=== PATIENT | female | born 1950 | race Caucasian/White ===

== ENCOUNTER 2018-06-01 05:34 | Inpatient (IN) ==
[2018-06-01] MEDS ORDERED: NS 1,000 ML IV ONE ×2 (05:42→08:00)
--- NOTE | 2018-06-01 05:46 | PROVIDER DOCUMENTATION ---
HPI-General Adult - General Chief Complaint: N/V/D Stated Complaint: vomiting/diarrhea Time Seen by Provider: 06/01/18 05:42 Source: patient (Patient is a 67 year old white female with COPD and throat cancer who presents by EMS complaining of nausea,vomiting,diarrhea, and dizziness since this morning. EMS report low blood pressure of 80 systolic. Denies chest pain, fever, or productive cough.) Allergies/Adverse Reactions: Patient Allergies Allergy/AdvReac Type Severity Reaction Status Date / Time metoprolol Allergy Unknown Verified 06/01/18 05:46 Sulfa (Sulfonamide Allergy SHORTNESS Verified 06/01/18 05:46 Antibiotics) OF BREATH morphine AdvReac Unknown Verified 06/01/18 05:46 Home Medications: Home Medication List Medication Instructions Recorded Confirmed Last Taken Type ATORVAstatin [Lipitor] 20 mg PO DAILY 05/13/16 06/01/18 Unknown History Cyproheptadine [Periactin] 4 mg PO HS 05/13/16 06/01/18 Unknown History Duloxetine HCl 90 mg PO DAILY 05/13/16 06/01/18 Unknown History Gabapentin 300 mg PO BID 05/13/16 06/01/18 Unknown History Omeprazole 40 mg PO DAILY 05/13/16 06/01/18 Unknown History Pramipexole [Mirapex] 0.5 mg PO QHS 05/13/16 06/01/18 Unknown History Prazosin [Minipress] 1 mg PO QHS 05/13/16 06/01/18 Unknown History Spironolactone 25 mg PO DAILY 05/13/16 06/01/18 Unknown History Trazodone [Desyrel] 100 mg PO QHS 05/13/16 06/01/18 Unknown History LISINOpril [Prinivil] 10 mg PO DAILY #30 tablet 05/15/16 06/01/18 Unknown Rx Alprazolam 1 tab PO Q8H PRN PRN 06/01/18 06/01/18 Unknown History Carvedilol [Coreg] 1 tab PO BID 06/01/18 06/01/18 Unknown History Montelukast Sodium 1 tab PO DAILY 06/01/18 06/01/18 Unknown History Ondansetron HCl 1 tab PO Q8H PRN PRN 06/01/18 06/01/18 Unknown History Prochlorperazine Maleate 1 tab PO Q6H PRN PRN 06/01/18 06/01/18 Unknown History - History of Present Illness -Gen Adult Nature of Presenting Problems: Patient is a 67 year old white female with COPD ,GERD, HTN,dementia, apnea, recent throat infection(currently taking antibiotic), and squamous cell carcinoma of nasopharynx who presents by EMS complaining of nausea,vomiting, diarrhea, and dizziness since this morning. EMS report low blood pressure of 80 systolic. Denies chest pain, fever, or productive cough. Review of Systems - Adult - REVIEW OF SYSTEMS - ADULT Constitutional: reports: fatique, weight loss Eyes: reports: no symptoms reported Ears, Nose, Mouth & Throat: reports: throat pain (recent throat infection, currently taking antibiotic) Cardiovascular: denies: chest pain Respiratory: reports: see HPI, cough, shortness of breath Gastrointestinal: reports: diarrhea, nausea, vomiting. denies: abdominal pain Genitourinary: denies: dysuria Musculoskeletal: reports: no symptoms reported Integumentary: denies: rash Neurological: reports: dizziness/vertigo Psychiatric: reports: anxiety Endocrine: reports: no symptoms reported Hematologic/Lymphatic: reports: no symptoms reported Allergic/Immunologic: reports: no symptoms reported All Other Systems: Reviewed and Negative Past History - Adult - PAST MEDICAL HISTORY-ADULT Review of Records: reports: Old Records Reviewed, Nursing Assessment Review, Medications Reviewed, Social history reviewed & non-contributory. Cardiovascular: reports: HTN Respiratory: reports: bronchitis, COPD, sleep apnea Gastrointestinal: reports: GERD Musculoskeletal: reports: denies history Neurological: reports: dementia Psychiatric: reports: anxiety Endocrine/Immune: reports: denies history - FAMILY HISTORY Family History: reviewed, not pertinent - SOCIAL HISTORY Smoking: quit greater than 1 year, other (prior heavy smoker, now smokes E- cigarettes) Substance Use: denies Alcohol Use Frequency: occasionally Physical Exam-General - CONSTITUTIONAL General Appearance: alert, other (generalized weakness, alert and responsive, appears pale,dry oral mucosa with dried blood over posterior pharynx) - EYES Eyes: other (clear, nonicteric) - HEAD, EARS, NOSE, MOUTH & THROAT HENMT: other (dry oral mucosa) - NECK Neck: supple - RESPIRATORY Respiratory: decreased breath sounds, other (nonlabored) - CARDIOVASCULAR Cardiovascular: regular rate, rhythm - GASTROINTESTINAL (ABDOMEN) Abdominal Exam: non tender, soft - MUSCULOSKELETAL Back Exam: no CVA tenderness Extremity: non-tender Peripheral Pulses: radial (R): 1+, radial (L): 1+ - SKIN Integumentary: other (decreased turgor) - NEUROLOGIC Neurologic: other (nonfocal) - PSYCHIATRIC Psych/Mental Status: anxious Progress - PLAN OF CARE/RESULTS Progress/Plan/Lab Results: Orders Category Date Time Status Cardiac Monitoring DIRECTED Care 06/01/18 05:42 Ordered Core Temperature ORDERED Care 06/01/18 05:42 Ordered CHEST-PORTABLE [RAD] Stat Exams 06/01/18 05:43 Ordered ABG [RESP] Stat Lab 06/01/18 05:43 Ordered CBC WITH ELECTRONIC DIFF [HEME] Stat Lab 06/01/18 05:44 Uncollected CMP [COMPREHENSIVE METABOLIC PANEL] [CHEM] Stat Lab 06/01/18 05:44 Uncollected LACTATE, PLASMA [CHEM] Stat Lab 06/01/18 05:43 Uncollected Ns 1000 ml IV Bolus X1 Med 06/01/18 05:42 Ordered 0.9% Sodium Chloride Inj [Ns] 1,000 ml IV 999 mls/hr Result Diagrams: 06/01/18 07:00 06/01/18 07:00 - REASSESSMENT Reassessment #1 Time Reassessed: 08:01 Status: unchanged (vomiting stopped , still diarrhea. ist liter ns given, not leukocytosis, chemo help past 2 week(dr Felipe) for renal injury, now with dehydration. Exam: throat davion raw /inflammed. abd tender lower quadrants. will CT to check for colitis.) Reassessment #2 Time Reassessed: 09:49 Status: improving (NOT ct W/ DESCENDING COLITIS, DISCUSSED ANTIBIOTICS AND ADMISSIO WITH DR THAKUR) - XRAY 1 XRAY Study: Chest XRAY Interpretation: NAD - CONSULTS/PCP/HOSPITALIST Notification #1 *Consult/PCP/Hospitalist*: DR OFE JAIME Time Discussed: 09:53 Consult Disposition: Admit - CHANGE OF SHIFT REPORT (ED Provider) Report Given and Care Transferred to:: Dr. Colt Gary Time of Transfer: 07:00 Items Pending: Labs Departure - Departure Date of Disposition Decision: 06/01/18 Time of Disposition Decision: 09:50 DIAGNOSIS: Colitis, Renal insufficiency, Dehydration Hypotension Qualifiers: Hypotension type: orthostatic hypotension Qualified Code(s): I95.1 - Orthostatic hypotension COPD (chronic obstructive pulmonary disease) Qualifiers: COPD type: unspecified COPD Qualified Code(s): J44.9 - Chronic obstructive pulmonary disease, unspecified Pharyngitis Qualifiers: Pharyngitis/tonsillitis etiology: unspecified etiology Qualified Code(s): J02.9 - Acute pharyngitis, unspecified Disposition: ADMITTED INPATIENT 09 Certified Medical Emergency: Emergent Condition: Stable Referrals and Follow-Ups: None,PCP [Primary Care Provider] - - Critical Care Note This patient required my direct & personal management of CC.: Yes Total Time (mins): 30 Critical Care Statement: This patient required my direct personal management to treat or rule out processes, the absence of which, could potentiallly result in sudden, clinically significant life or limb threatening deterioration. Attestation - Physician/ NAFISA Attestation Patient care was provided by Advanced Practice Provider:: No The physician spent face to face time with patient:: Yes Advanced Practice Provider documentation review:: Supervising physician onsite and consulted in the evaluation and care of this patient. The physician did have a face to face encounter with the patient.
[2018-06-01] MEDS ORDERED: ZOFRAN IV ONE (06:01)
[2018-06-01 06:06] LABS: BE -3.8 mmoll (-3.0-3.0); BLOOD TYPE ARTERIAL; HCO3-(ACT) 21.9 mmoll (20.0-26.0); METHB 1.3 % (0.0-1.5); O2(CT) 14.5 mL/dL (15.0-23.0); O2HB 91.9 % (95.0-99.0); PCO2(98.6) 43 mmHg (35-45); PO2(98.6) 69 mmHg (60-100); SAMPLE BLOOD; SAO2 95.3 % (95.0-100.0); THB 11.2 g/dL (11.5-17.4); pH(98.6) 7.32 (7.35-7.45)
[2018-06-01 06:09] LABS: MODALITY CANNULA
[2018-06-01 06:58] LABS: BILIRUBIN URINE NEGATIVE (NEGATIVE); BLOOD URINE NEGATIVE (NEGATIVE); CLARITY CLEAR (CLEAR); COLOR YELLOW; GLUCOSE URINE NEGATIVE (NEGATIVE); KETONE URINE NEGATIVE (NEGATIVE); LEUKOCYTES URINE NEGATIVE (NEGATIVE); NITRITE URINE NEGATIVE (NEGATIVE); PH URINE 6.5; PROTEIN URINE NEGATIVE (NEGATIVE); SP GRAVITY URINE 1.005; UROBILINOGEN URINE NORMAL
--- NOTE | 2018-06-01 07:04 | Diag Imaging Result Doc PS360 ---
EXAM: CHEST-PORTABLE - 06/01/2018 HISTORY: shortness of breath TECHNIQUE: Portable chest COMPARISON: 05/13/2016 FINDINGS: Inspiration is shallow. There are scarring and subsegmental atelectasis at the bilateral lung bases. The remainder of the lungs appear clear. There is no pleural effusion or pneumothorax identified. There are old right rib fracture deformities similar to prior. The heart borders are largely obscured due to the shallow inspiration. IMPRESSION: Shallow inspiration, with bibasilar subsegmental atelectasis. Electronically signed by Alin Toney 06/01/2018 7:02 AM
[2018-06-01 07:05] LABS: URINE EPITHELIAL CELLS <10 /HPF (<10); URINE SOURCE CATH
[2018-06-01 07:26] LABS: BASO# 0.03 X1000 (0.0-0.2); BASO% 0.2 % (0.0-0.8); EOS# 0.02 X1000 (0.0-0.7); EOS% 0.1 % (0.0-10.0); HEMOGLOBIN 9.9 g/dL (12.0-16.0); IMM GRAN# 0.08 X1000 (0.0-0.04); IMM GRAN% 0.5 % (0.0-0.5); LYMPH# 0.38 X1000 (1.2-3.4); LYMPH% 2.3 % (20.5-51.1); MCH 32.4 PG (27-31); MCHC 31.9 g/dL (33-37); MCV 101.3 FL (81-99); MONO% 5.5 % (1.7-9.3); MPV 10.2 FL (7.4-10.4); NEUT# 14.97 X1000 (1.4-6.5); NEUT% 91.4 % (42.2-75.2); PLT 236 X1000 (130-400); RBC 3.06 XMIL (4.2-5.4); RDW 13.2 % (11.5-14.5); WBC 16.38 X1000 (4.8-10.8)
[2018-06-01 07:31] LABS: ALBUMIN 2.9 g/dL (3.5-5.0); CALCIUM 8.6 mg/dL (8.8-10.2); CREATININE 3.8 mg/dL (0.5-0.9); POTASSIUM 5.6 mmol/L (3.5-5.1); TOTAL BILIRUBIN 0.3 mg/dL (0.20-1.00); TOTAL PROTEIN 6.1 g/dL (6.3-8.3)
[2018-06-01 07:33] LABS: ALLEN TEST YES
[2018-06-01] MEDS ORDERED: NARCAN IV ONE (08:00)
--- NOTE | 2018-06-01 09:01 | Diag Imaging Result Doc PS360 ---
EXAM: CT ABDOMEN/PELVIS W/O CONTRAST - 06/01/2018 HISTORY: ?colitis TECHNIQUE: CT abdomen/pelvis without contrast. No contrast administered per request of the referring provider. COMPARISON: None. FINDINGS: There are ill-defined infiltrates, atelectasis, and/or scarring at the bilateral lung bases. There is a moderate size hiatal hernia. There is some limitation of detail due to the lack of administered contrast. There are no substantial abnormalities of the liver, spleen, or pancreas. There is mild prominence of the bilateral adrenal glands. The gallbladder is mildly distended. There is possibly a tiny calcified gallstone in the gallbladder fundus. There is no pericholecystic inflammation seen. There is no renal stone or hydronephrosis identified. There are no substantially enlarged lymph nodes identified. There is no evidence of small bowel bowel obstruction. The appendix by history is surgically absent. The cecum, ascending, and proximal transverse colon are distended with fluid. There is a large amount of retained fecal debris in the distal transverse colon. There is wall thickening at the splenic flexure and proximal descending colon with infiltration of pericolic fat, compatible with colitis. There is no discrete inflamed diverticulum identified. There is a large amount of retained fecal debris in the rectosigmoid colon. There is no abscess identified. There is no free air identified. There is no substantial free fluid identified. IMPRESSION: Colitis at splenic flexure and proximal descending colon. No abscess. No free air. Large amount of retained fecal debris in the distal transverse colon and rectosigmoid colon. Distention of right colon with fluid. Ill-defined opacities at bilateral lung bases. Bronchopneumonia cannot be excluded. Hiatal hernia. Mild fullness of bilateral adrenal glands, which may relate to hyperplasia or small adenomas. This exam was performed using automated exposure control, adjustment of mA or kV according to patient size, and/or use of iterative reconstruction technique. Electronically signed by Alin Toney 06/01/2018 8:59 AM
[2018-06-01] MEDS ORDERED: CIPRO 400 MG/D5W 400 MG/200 ML IVPB IV ONE (09:48)
[2018-06-01] MEDS ORDERED: FLAGYL 500 MG/NS 500 MG/100 ML IVPB IV ONE (09:48)
--- NOTE | 2018-06-01 12:04 | HISTORY AND PHYSICAL ---
PRIMARY CARE PHYSICIAN: Dr. Bneson. ONCOLOGIST: Dr. Felipe. CHIEF COMPLAINT: Nausea, vomiting and diarrhea that began at 3 a.m. this morning. HISTORY OF PRESENTING ILLNESS: This is a 67-year-old, female who presents to [facility] ER with her son stating that she began having nausea, vomiting, and diarrhea around 3 a.m. this morning. She is currently receiving chemotherapy and radiation for a throat cancer, and has had some yeast in her throat recently and was being treated for that. She has had decreased p.o. intake recently, but that was improving yesterday with the medications she was receiving. When she did arrive to the emergency room, she had a blood pressure of 85/61 saturating now 89% on room air. Her white blood cell count was 16.38. Her BUN was 33 with a creatinine of 3.8. Her potassium was 5.6. Urinalysis was negative. We did a chest x-ray that showed shallow inspiration with bibasilar subsegmental atelectasis. We did a CT of the abdomen and pelvis that showed an impression of colitis at the splenic flexure and proximal descending colon. No abscess, no free air. Large amount of retained fecal debris in the distal transverse colon. Also some ill-defined opacities at the bilateral lung bases that bronchopneumonia could not be excluded so she is being admitted for further evaluation and treatment. PAST MEDICAL HISTORY: 1. COPD. 2. Sleep apnea. 3. Bronchitis. 4. Throat cancer. 5. Ongoing chemotherapy and radiation. 6. GERD. 7. Dementia. 8. Hypertension. 9. Hepatitis B. PAST SURGICAL HISTORY: 1. Hysterectomy. 2. Tonsillectomy. 3. Detached retina repair. FAMILY HISTORY: Reviewed and noncontributory. SOCIAL HISTORY: She currently lives with family, smokes a half a pack to a pack of cigarettes a day and has done so for 50 years but states that 2 days ago she changed to an E cigarette. Denies any alcohol or illicit drug use. ALLERGIES: 1. Metoprolol. 2. Sulfa. 3. Morphine. HOME MEDICATIONS: We will need to obtain a current list and restart as appropriate. I will have nursing to update and confirm her home medicines and we will review them and restart as appropriate. LABORATORY DATA: Showed a white blood cell count of 16.38, hemoglobin 9.9, hematocrit 31.0, platelets 236,000. ABG with a pH of 7.32, pCO2 of 43, PO2 69, bicarb 21.9, and this was on 2 L via nasal cannula. Sodium of 135, potassium 5.6, chloride 101, CO2 22, BUN of 33, creatinine 3.8, glucose 110. Cardiac enzymes were negative. Plasma lactate was 0.9. Urinalysis was negative. Chest x-ray showed shallow inspiration with bibasilar subsegmental atelectasis. Abdomen and pelvic CT showed an impression of colitis at the splenic flexure and proximal descending colon. No abscess, no free air. Large amount of retained fecal debris in the distal transverse colon and rectosigmoid colon. Distention of right colon with fluid. Ill-defined opacities at the bilateral lung bases; bronchopneumonia could not be excluded and hiatal hernia. Also noted mild fullness of bilateral adrenal glands which may relate to hyperplasia or small adenomas. REVIEW OF SYSTEMS: She denied any fever, chills, blurred vision, dizziness. She again has had some yeast in her throat and had difficulty swallowing from that. Had poor p.o. intake. Denied any chest pain, coughing and she had some mild shortness of breath. She had nausea, vomiting, diarrhea, some left lower quadrant abdominal pain. Denied any burning or hurting with urination. PHYSICAL EXAMINATION: On arrival she had a temperature of 97.5 degrees, pulse 82, respirations 20, blood pressure was 85/61 when she was saturating 89% on room air. Currently after fluid resuscitation her blood pressure is up to 136/80, and she is saturating 97% on 2 L via nasal cannula. GENERAL: This is a thin, frail, female who is lying in the bed, answers questions appropriately. HEENT: Normocephalic, atraumatic. Normal ENT inspection. Oropharynx and nares are clear. EYES: Pupils are equal, round, reactive to light and accommodation. Extraocular movements are intact. NECK: Normal inspection, normal range of motion, noted some erythema to anterior neck secondary to radiation. LUNGS: Clear to upper lobes, decreased to lower lobes. Equal lung expansion and chest wall movement noted. HEART: With regular rate and rhythm. No murmurs, rubs, or gallops. ABDOMEN: Soft. There is tenderness to palpation to the left lower quadrant. Hypoactive bowel sounds x 4 quadrants. MUSCULOSKELETAL: She has 3/5 strength. NEUROLOGICAL: The cranial nerves 2-12 appear grossly intact. ASSESSMENT: 1. Sepsis. 2. Colitis. 3. Bilateral lower lobe bronchopneumonia. 4. Hypotension. 5. Acute kidney injury. 6. Throat cancer currently receiving chemotherapy and radiation. PLAN: She will be admitted to the medical unit. Placed on telemetry, O2 per protocol. She is on normal saline at 125 mL an hour. She has received 2 boluses of normal saline in the emergency room. She will be placed on Levaquin 500 mg IV q. 24, Flagyl 500 IV q. 8, DuoNeb q. 4, Bentyl 10 mg p.o. q. 8 hours p.r.n. We will recheck a CBC, BMP in the a.m. We will place her on clear liquids. We will update and confirm her home medications. I am going to go ahead and place her on some nystatin 5 mL 4 times daily swish and swallow for the yeast that she was being treated for in her throat to carpenter helper in maybe increasing her p.o. intake as that is what has most likely caused her to become severely dehydrated and in acute kidney injury at this time. Dictated by LAURENT Avendaño for Alonso Gleason MD cc: LAURENT Avendaño MD Dr. Adams Heather Shah, MD [facility]
[2018-06-01] MEDS: NS 1,000 ML IV SCH ×2 (15:03→22:12)
[2018-06-01] MEDS ORDERED: BENTYL PO PRN (15:55)
[2018-06-01] MEDS ORDERED: ZOFRAN IV PRN (15:55)
--- NOTE | 2018-06-01 15:58 | EKG Report ---
Test Performed on : 06/01/2018 12:08:23 PM Test Reason : ER Blood Pressure : / mmHG Vent. Rate : 086 BPM Atrial Rate : 086 BPM P-R Int : 144 ms QRS Dur : 064 ms QT Int : 450 ms P-R-T Axes : 057 021 065 degrees QTc Int : 538 ms Normal sinus rhythm. Low voltage QRS Nonspecific T wave abnormality Abnormal ECG When compared with ECG of 14-MAY-2016 08:19, Nonspecific T wave abnormality, worse in Anterior leads Unconfirmed Result
[2018-06-01] MEDS ORDERED: CALCIUM GLUCONATE 4.65 MEQ in NS 50 ML IV ONE (16:32)
[2018-06-01] MEDS ORDERED: FLEET ENEMA PR ONE (16:34)
[2018-06-01] MEDS ORDERED: DUONEB (A & A) ONE (16:52)
[2018-06-01] MEDS: DUONEB (A & A) INH SCH ×3 (16:57→22:37)
[2018-06-01] MEDS ORDERED: XANAX PO PRN (17:18)
[2018-06-01] MEDS: MYCOSTATIN SUSP PO SCH ×3 (19:22→21:17)
[2018-06-01] MEDS: FLAGYL 500 MG/NS 500 MG/100 ML IVPB IV SCH (19:23)
--- NOTE | 2018-06-01 20:40 | HISTORY AND PHYSICAL ---
HISTORY: A 67-year-old female with head and neck cancer presents with nausea, vomiting, severe constipation, and now with some possible overflow diarrhea. She is getting chemo and radiation per Dr. Gloria and Dr. Curtis. She is found to be a little bit hypoxic, but she does have COPD. She is also hypotensive and she was in renal failure. I have seen her post resuscitation, and she is much improved. Vital signs are improved. PHYSICAL EXAMINATION: On her physical exam, she does have some rhonchi on physical exam. Abdominal exam is benign. PROBLEM LIST: 1. I think she has got severe constipation with colitis, and possibly related to chemo versus infection. She has got a large amount of retained fecal debris almost so I think we do need to clean her out. I am going to order some more medications, and see how she does. 2. Acute kidney injury. We will avoid nephrotoxic drugs. Continue IV fluids. Check urine electrolytes and follow closely. Continue hydration. 3. Head and neck cancer. Aware. We will continue to follow. 4. Bronchopneumonia. She will be on Levaquin and breathing treatments. We will follow closely. This is a [id number] encounter note with LAURENT Avendaño. cc: Alonso Gleason MD
[2018-06-01] MEDS ORDERED: MINIPRESS PO SCH (21:00)
[2018-06-01] MEDS ORDERED: LACTULOSE PO SCH (21:00)
[2018-06-01] MEDS: PERIACTIN PO SCH (21:15)
[2018-06-01] MEDS: COREG PO SCH (21:15)
[2018-06-01] MEDS: LIPITOR PO SCH (21:15)
[2018-06-01] MEDS: NEURONTIN PO SCH (21:15)
[2018-06-01] MEDS: DESYREL PO SCH (21:16)
[2018-06-01] MEDS: MIRAPEX PO SCH (21:16)
[2018-06-01] MEDS ORDERED: NS 500 ML IV ONE (22:41)
[2018-06-02] MEDS: FLAGYL 500 MG/NS 500 MG/100 ML IVPB IV SCH ×3 (01:51→17:57)
[2018-06-02] MEDS: DUONEB (A & A) INH SCH ×6 (02:56→23:27)
[2018-06-02] MEDS ORDERED: LEVAQUIN 500 MG/D5W 500 MG/100 ML IVPB IV SCH (06:00)
[2018-06-02] MEDS: NS 1,000 ML IV SCH (06:26)
[2018-06-02] MEDS: PRILOSEC PO SCH (06:26)
[2018-06-02 06:40] LABS: BASO# 0.02 X1000 (0.0-0.2); BASO% 0.2 % (0.0-0.8); EOS# 0.03 X1000 (0.0-0.7); EOS% 0.3 % (0.0-10.0); HEMATOCRIT 25.1 % (37.0-47.0); HEMOGLOBIN 7.9 g/dL (12.0-16.0); IMM GRAN# 0.02 X1000 (0.0-0.04); IMM GRAN% 0.2 % (0.0-0.5); LYMPH% 2.5 % (20.5-51.1); MCH 32.1 PG (27-31); MCHC 31.5 g/dL (33-37); MONO# 0.59 X1000 (0.11-0.59); MPV 10.7 FL (7.4-10.4); NEUT# 10.89 X1000 (1.4-6.5); NEUT% 91.8 % (42.2-75.2); PLT 194 X1000 (130-400); RBC 2.46 XMIL (4.2-5.4); RDW 13.1 % (11.5-14.5); WBC 11.85 X1000 (4.8-10.8)
[2018-06-02 06:56] LABS: CALCIUM 7.9 mg/dL (8.8-10.2); CREATININE 2.9 mg/dL (0.5-0.9); POTASSIUM 4.8 mmol/L (3.5-5.1)
[2018-06-02 07:53] LABS: ANISOCYTOSIS 1+; EOS 1 % (1-10); LYMPHS 6 % (21-51); MONO 5 % (1-9); SEGS 88 % (42-75)
[2018-06-02] MEDS ORDERED: MBX SOLUTION MT PRN (10:00)
[2018-06-02] MEDS: NEURONTIN PO SCH ×2 (10:47→21:01)
[2018-06-02] MEDS: MYCOSTATIN SUSP PO SCH ×4 (10:47→21:01)
[2018-06-02] MEDS: SINGULAIR PO SCH (10:47)
[2018-06-02] MEDS: CYMBALTA PO SCH (10:49)
[2018-06-02] MEDS: COREG PO SCH ×2 (10:49→21:02)
--- NOTE | 2018-06-02 11:09 | PROGRESS NOTE ---
DATE: 06/02/2018 SUBJECTIVE: The patient has no major complaints. OBJECTIVE: Vital Signs: Blood pressure is 99/51, heart rate of 75, respiratory rate of 20, temperature 98.9 degrees. She had a 99.7 temperature. She had a temperature of 100.1 degrees last night. Cardiovascular: Regular rate and rhythm. Pulmonary: Bilateral breath sounds. Clear to auscultation. GI: Soft, nontender, nondistended. Bowel sounds are positive. LABORATORY DATA: White count is 11, hemoglobin and hematocrit 7.9 and 25, platelets 194. Creatinine is down to 2.9. Urine was actually completely clear. PROBLEM LIST: 1. Fecal impaction with some residual colitis. I think the impaction has been relieved from what I understand. Stool studies are thus far really unrevealing. We will continue empiric antibiotics and bowel regimen. 2. Acute kidney injury. We will continue intravenous fluids, and still waiting on getting her urine electrolytes. There was no hydronephrosis noted on the CT scan. 3. Pneumonia. She seems to be doing better. We will continue breathing treatments and pulmonary toilet and antibiotics. She is on Levaquin. 4. Head and neck cancer appears to be stable. DISPOSITION: I think she is stable enough to go to the floor. Vital signs have improved. Will continue to follow closely. cc: Alonso Gleason MD
[2018-06-02] MEDS ORDERED: BLISTEX MEDICATED BERRY LIP BALM TOP PRN (12:04)
[2018-06-02] MEDS: PERIACTIN PO SCH (21:01)
[2018-06-02] MEDS: LIPITOR PO SCH (21:02)
[2018-06-02] MEDS: DESYREL PO SCH (21:02)
[2018-06-02] MEDS: MIRAPEX PO SCH (21:02)
[2018-06-03] MEDS: FLAGYL 500 MG/NS 500 MG/100 ML IVPB IV SCH ×3 (01:38→17:26)
[2018-06-03] MEDS: DUONEB (A & A) INH SCH ×6 (03:18→23:22)
[2018-06-03] MEDS: NS 1,000 ML IV SCH ×4 (05:52→20:56)
[2018-06-03] MEDS: PRILOSEC PO SCH (06:03)
[2018-06-03 07:49] LABS: BASO# 0.02 X1000 (0.0-0.2); BASO% 0.2 % (0.0-0.8); EOS# 0.03 X1000 (0.0-0.7); EOS% 0.3 % (0.0-10.0); HEMATOCRIT 25.9 % (37.0-47.0); HEMOGLOBIN 8.3 g/dL (12.0-16.0); IMM GRAN# 0.02 X1000 (0.0-0.04); IMM GRAN% 0.2 % (0.0-0.5); LYMPH# 0.42 X1000 (1.2-3.4); LYMPH% 4.8 % (20.5-51.1); MCH 32.2 PG (27-31); MCV 100.4 FL (81-99); MONO# 0.55 X1000 (0.11-0.59); MONO% 6.3 % (1.7-9.3); MPV 10.6 FL (7.4-10.4); NEUT# 7.75 X1000 (1.4-6.5); NEUT% 88.2 % (42.2-75.2); PLT 201 X1000 (130-400); RBC 2.58 XMIL (4.2-5.4); RDW 13.2 % (11.5-14.5); WBC 8.79 X1000 (4.8-10.8)
[2018-06-03 08:04] LABS: CALCIUM 8.2 mg/dL (8.8-10.2); CREATININE 2.3 mg/dL (0.5-0.9); POTASSIUM 4.4 mmol/L (3.5-5.1)
[2018-06-03 09:09] LABS: LYMPHS 8 % (21-51); MONO 4 % (1-9); SEGS 88 % (42-75)
[2018-06-03] MEDS: MIRALAX PO SCH (10:17)
[2018-06-03] MEDS: COREG PO SCH ×2 (10:17→20:57)
[2018-06-03] MEDS: CYMBALTA PO SCH (10:17)
[2018-06-03] MEDS: MYCOSTATIN SUSP PO SCH ×4 (10:18→20:56)
[2018-06-03] MEDS: NEURONTIN PO SCH ×2 (10:18→20:57)
[2018-06-03] MEDS: SINGULAIR PO SCH (10:18)
[2018-06-03] MEDS: DIFLUCAN PO SCH (10:18)
[2018-06-03 10:43] LABS: UR CREAT RANDOM 32.4 mg/dL (11-20); UR PROT RANDOM < 4.0 mg/dL; UR SODIUM 73 mmoll
[2018-06-03] MEDS ORDERED: LACTULOSE PO ONE (18:34)
[2018-06-03] MEDS: MIRAPEX PO SCH (20:57)
[2018-06-03] MEDS: LIPITOR PO SCH (20:57)
[2018-06-03] MEDS: DESYREL PO SCH (20:57)
[2018-06-03] MEDS: PERIACTIN PO SCH (20:57)
[2018-06-03] MEDS ORDERED: LACTULOSE PO SCH (21:00)
--- NOTE | 2018-06-04 01:15 | PROGRESS NOTE ---
DATE: 06/03/2018 SUBJECTIVE: She has no major complaints. OBJECTIVE: Blood pressure 115/89, heart rate of 83, respiratory rate 18, temperature 97 degrees, 94% on 2 L. Cardiovascular: Regular rate and rhythm. Pulmonary: Bilateral breath sounds. Clear to auscultation. Gastrointestinal: Soft, nontender, nondistended. Bowel sounds are positive. LABORATORY DATA: White count is 8, hemoglobin 8, hematocrit 25, platelets 201,000. BUN is down to 21, and creatinine is down to 2.3. PROBLEM LIST: 1. Acute kidney injury related to prerenal failure. We will continue IV fluids and follow closely. Her urine electrolytes are still not clear, but it is more consistent with ATN. 2. Fecal impaction colitis. She still feels like she has still got a lot of bowel, so we will continue her bowel regimen and follow. 3. Pneumonia. We will continue some Levaquin and follow closely. DISPOSITION: Pending clinical status. We will continue to follow closely. We will repeat her plain films tomorrow and see how she does. cc: Alonso Gleason MD
[2018-06-04] MEDS: FLAGYL 500 MG/NS 500 MG/100 ML IVPB IV SCH ×2 (01:37→09:32)
[2018-06-04] MEDS: DUONEB (A & A) INH SCH ×4 (03:35→16:00)
[2018-06-04] MEDS ORDERED: LEVAQUIN 250 MG/D5W 250 MG/50 ML IVPB IV SCH (06:00)
[2018-06-04] MEDS: PRILOSEC PO SCH (06:18)
[2018-06-04] MEDS: LACTULOSE PO SCH ×2 (06:19→09:35)
[2018-06-04] MEDS: NS 1,000 ML IV SCH (06:50)
[2018-06-04 07:30] LABS: CALCIUM 8.3 mg/dL (8.8-10.2); CREATININE 1.9 mg/dL (0.5-0.9); POTASSIUM 4.3 mmol/L (3.5-5.1)
[2018-06-04 07:40] LABS: BASO# 0.03 X1000 (0.0-0.2); BASO% 0.3 % (0.0-0.8); EOS# 0.06 X1000 (0.0-0.7); EOS% 0.6 % (0.0-10.0); HEMATOCRIT 27.4 % (37.0-47.0); HEMOGLOBIN 8.7 g/dL (12.0-16.0); IMM GRAN# 0.03 X1000 (0.0-0.04); IMM GRAN% 0.3 % (0.0-0.5); LYMPH# 0.48 X1000 (1.2-3.4); LYMPH% 4.6 % (20.5-51.1); MCH 31.8 PG (27-31); MCHC 31.8 g/dL (33-37); MONO# 0.69 X1000 (0.11-0.59); MONO% 6.6 % (1.7-9.3); NEUT# 9.18 X1000 (1.4-6.5); NEUT% 87.6 % (42.2-75.2); PLT 241 X1000 (130-400); RBC 2.74 XMIL (4.2-5.4); RDW 13.4 % (11.5-14.5); WBC 10.47 X1000 (4.8-10.8)
--- NOTE | 2018-06-04 07:54 | Diag Imaging Result Doc PS360 ---
EXAM: ABDOMEN FLAT/UPRIGHT 06/04/2018 HISTORY: sbo TECHNIQUE: Flat and upright abdomen COMMENT: There are air-fluid levels in the colon. The stomach and small bowel do not appear to be significantly distended. There is some gas in the rectum. IMPRESSION: Possible ileus and/or enterocolitis. Electronically signed by Roderick Caballero 06/04/2018 7:51 AM
[2018-06-04 08:14] LABS: EOS 2 % (1-10); MONO 8 % (1-9); SEGS 90 % (42-75)
[2018-06-04 08:15] LABS: LARGE PLATELETS OCCASIONAL
[2018-06-04] MEDS: MYCOSTATIN SUSP PO SCH ×2 (09:27→16:39)
[2018-06-04] MEDS: DIFLUCAN PO SCH (09:27)
[2018-06-04] MEDS: SINGULAIR PO SCH (09:27)
[2018-06-04] MEDS: COREG PO SCH (09:27)
[2018-06-04] MEDS: NEURONTIN PO SCH (09:27)
[2018-06-04] MEDS: CYMBALTA PO SCH (09:27)
[2018-06-04] MEDS: MIRALAX PO SCH (09:35)
[2018-06-04 16:26] VITALS: BP 126/72
--- NOTE | 2018-06-04 23:58 | DISCHARGE SUMMARY ---
ADMISSION DATE: 06/02/2018 DISCHARGE DATE: 06/04/2018 ADDENDUM: She is a 67-year-old female. Today she is doing well. No major complaints. She is afebrile. She is having bowel movements. White count is 10, hemoglobin and hematocrit 8 and 27, platelets 241,000. Her creatinine is down to 1.9. PROBLEM LIST: Patient is better. Her acute kidney injury is resolving. I would not say it is resolved. I encouraged her to continue hydration and we will hold her lisinopril for the time being until she can follow up with Dr. Huff or her PCP. We will discharge her on Levaquin and Flagyl for pneumonia and colitis. We will keep her on MiraLAX because I think she has got chronic constipation so I feel stable for discharge. She will need a followup basic in about a week just to make sure kidney function is stabilized then reevaluate if she needs resumption of her lisinopril at that time. 32 minute discharge [id number] encounter note with Glory Meade. cc: Alonso Gleason MD
--- NOTE | 2018-06-05 00:43 | DISCHARGE SUMMARY ---
ADMISSION DATE: 06/02/2018 DISCHARGE DATE: 06/04/2018 PRIMARY CARE PHYSICIAN: Dr. Benson. ONCOLOGIST: Dr. Felipe. ADMISSION DIAGNOSIS: 1. Sepsis. 2. Colitis. 3. Bilateral lower lobe bronchopneumonia. 4. Hypotension. 5. Acute kidney injury. 6. Throat cancer currently receiving chemotherapy and radiation. DISCHARGE DIAGNOSIS: 1. Acute kidney injury improved, likely secondary to prerenal failure. 2. Fecal impaction colitis improved. 3. Bilateral lower lobe bronchopneumonia improved. 4. Hypotension resolved. 5. Sepsis resolved. 6. Throat cancer, currently receiving chemotherapy and radiation. SUMMARY OF FINDINGS: This is a 67-year-old female who presented to the ER with her son stating that she began having some nausea, vomiting and diarrhea around 3 a.m. on the morning of arrival. She currently does receive chemotherapy and radiation for throat cancer and had some yeast in her throat recently and had been treated for that and had a decreased p.o. intake. When she arrived to the emergency room she had a blood pressure of 85/61, saturating 89% on room air. Chest x-ray showed shallow inspiration with bibasilar subsegmental atelectasis. We did do a CT of the abdomen and pelvis that showed an impression of colitis at the splenic flexure and proximal descending colon. She also had some ill-defined opacities at the bilateral lung bases, clear bronchopneumonia could not be excluded. We admitted her, placed her on IV hydration, IV antibiotics. I did place her on some nystatin swish and swallow 4 times daily. Her white blood cell count has returned to normal. Her creatinine is down to 1.9 today and it is felt that she can safely be discharged home. DISCHARGE MEDICATIONS: Alprazolam 0.25 mg p.o. q.8 hours p.r.n., atorvastatin 20 mg p.o. daily, Coreg 3.125 mg p.o. b.i.d., Periactin 4 mg p.o. at bedtime, duloxetine 90 mg p.o. daily, gabapentin 300 mg p.o. q.8 hours, montelukast sodium 10 mg p.o. daily, omeprazole 40 mg p.o. daily, Mirapex 0.5 mg p.o. at bedtime, trazodone 100 mg p.o. at bedtime, prescription for lactulose 30 mL p.o. daily p.r.n., Levaquin 500 mg p.o. daily #7 with no refill, Flagyl 500 mg p.o. t.i.d. #21 with no refills, Zofran 8 mg p.o. q.8 hours p.r.n., MiraLAX 17 g p.o. daily and prochlorperazine 10 mg p.o. q.6 hours p.r.n. FOLLOWUP: She will need to follow up with her primary care physician in 1 to 2 weeks. All discharge instructions have been reviewed with the patient and she verbalized understanding. TIME SPENT: 35 minutes. Dictated by LAURENT Avendaño for Alonso Gleason MD cc: LAURENT Avendaño MD
== END 2018-06-04 18:31 | disposition home or self-care (01) | DRG 871 ==
LOC: P.ICU 05:34 → P.ED 05:34 → SUATTDRO 11:49 → P.MEDSURG 06-02 13:54
PROVIDERS: ADMIT Internal Medicine; ATTEND Internal Medicine
CPT/HCPCS: 51701; 71010; 71045; 74019; 74020; 74176; 80048; 80053; 81001; 82270; 82550; 82570; 82805; 83605; 83630; 84156; 84300; 84484; 85025; 87040; 87045; 87046; 87177; 87205; 87324; 87427; 87798; 88313; 89055; 93005; 94640; 94761; 96361; 96365; 96367; 96375; 99285; A9270; J0610; J0744; J1956; J2405; J7030; J7040; P9612; S0030